=== PATIENT | male | born 1955 | race Caucasian/White ===

== ENCOUNTER → 2017-05-01 | Day surgery (SDC) | payer OTHER ==
[~2017-05-01] VITALS: Ht 188 cm; Wt 95.2 kg
[~2017-05-01] MED LIST: ASPI-973 PO; GLBR5T PO; LISI-571 PO; METF500T4 PO; NPH,100V11 SUBQ; PRAV10TA2 PO; SILD20TA14 PO; Sodium Chloride LOK Flush 10 mL Syringe IV PRN; TIZA4CAP8 PO; TRIA60LO3 TOP; fentaNYL-PF 50 mCg/mL 2 mL Inj IVPUSH PRN
[2017-05-01 15:06] VITALS: BP 119/79; PULSE 72; RESP 16; O2SAT 98
[2017-05-01] MEDS: 0.9% Sodium Chloride 1,000 ML IV PRN ×2 (15:14→16:09)
--- NOTE | 2017-05-01 16:25 | PCM.ENDCOL ---
Colonoscopy Date of Service: May 01, 2017 Physician Chaparro Chen MD Pre Procedure Diagnosis: Screening Post Procedure Dx & Findings: Polyp hemorrhoids diverticulosis Procedure Colonoscopy PROCEDURE IN DETAIL: Prep adequate Withdrawal time 17 minutes After unremarkable rectal examination the Olympus video colonoscope was inserted patient's anal canal and was advanced to cecum. Landmarks were identified including the ileocecal valve and appendiceal orifice. Scope was withdrawn systematically. Visualized colonic mucosa showed healthy shiny mucosa with normal healthy-appearing vasculature. In the ascending colon there was a 1 mm polyp which was removed completely with cold forceps. In the transverse colon there was 1 mm polyp which was removed completely using cold forceps. In the descending colon there was a 1 mm polyp which was removed completely using cold forceps. The sigmoid colon there was a 3 mm polyp which was removed completely using cold snare. In the rectosigmoid junction, there was a 1 cm polyp which was removed completely using snare. From the descending colon and to the distal sigmoid colon there are a few isolated diverticuli medium-sized. In the rectum retroflexion was done which showed hemorrhoids. Anal canal was inspected carefully on the way out and hemorrhoids noted. Impression Polyps 5 status post complete removal. Largest one centimeters. Diverticuli Hemorrhoids Recommendation Repeat colonoscopy 3 years Diverticula diet Presedation Assessment Risks and Benefits Informed consent was obtained from the patient after all risks and benefits including but not limited to drug reaction, infection, pain, bleeding, perforation, as well as alternatives were discussed. Patient monitoring Continuous pulse oximetry, cardiac monitoring, blood pressure monitoring, IV access, and oxygen at 2L per nasal cannula. Periprocedural Fentanyl: Fentanyl 75mcg Incrementally Midazolam: Midazolam 4mg Incrementally Complications There were no periprocedural complications identified. Post Procedure Plan Post Procedure Recommendations 1. Restrict activities today. 2. Resume normal activities in the morning. 3. Resume medications. 4. Patient informed of normal post procedure side effects as bloating, drowsiness, blood streaking in the stool. 5. average risk CRCS. If colon polyps come back as: -Hyperplastic- can repeat colonoscopy in 10 years -Tubular adenoma- repeat colonoscopy in 5 years -Tubulovillous/villous adenoma- repeat colonoscopy in 3 years -If any dysplasia- return to clinic as soon as possible 6. Please don't hesitate to call me with any questions. Chaparro Chen MD May 01, 2017 16:25
[2017-05-01 16:31] VITALS: BP 142/81; PULSE 74; RESP 16; O2SAT 99
[2017-05-01 16:41] VITALS: BP 136/84; PULSE 63; RESP 16; O2SAT 98
[2017-05-01 16:47] VITALS: BP 140/83; PULSE 66; RESP 16; O2SAT 98
--- NOTE | 2017-05-03 16:38 | PATH ---
SURGICAL PATHOLOGY Attending Physician:Chaparro Chen M.D. CASE STATUS: Signed Out PATIENT NAME: SKYE ROSENTHAL PID: [id number] : 1955 DATE COLLECTED:05/01/2017 00:00 SPECIMEN: 1: Colon, Polyp 2: Colon, Polyp 3: Colon, Polyp 4: Colon, Polyp 5: Rectum, Biopsy CLINICAL HISTORY: 1). ASCENDING COLON POLYP 2). TRANSVERSE COLON POLYP 3). DESCENDING COLON POLYP 4). SIGMOID COLON POLYP 5). RECTAL POLYP FINAL DIAGNOSIS: 1.ASCENDING COLON, POLYP, BIOPSY: POLYPOID PORTION OF COLORECTAL MUCOSA WITH A LYMPHOID AGGREGATE AND NO DIAGNOSTIC ABNORMALITY. 2.TRANSVERSE COLON, POLYP, BIOPSY: TUBULAR ADENOMA; NEGATIVE FOR HIGH-GRADE DYSPLASIA. 3.DESCENDING COLON, POLYP, BIOPSY: TUBULAR ADENOMA; NEGATIVE FOR HIGH-GRADE DYSPLASIA. 4.SIGMOID COLON, POLYP, BIOPSY: POLYPOID PORTION OF COLORECTAL MUCOSA WITH NO DIAGNOSTIC ABNORMALITY. 5.RECTUM, POLYP, BIOPSY: TUBULAR ADENOMA; NEGATIVE FOR HIGH-GRADE DYSPLASIA. [id number] GROSS DESCRIPTION: The specimen is received in five formalin filled containers labeled with the patient's name. 1). The specimen is labeled "ascending colon polyp" and consists of a 0.2 x 0.2 x 0.2 CM portion of tissue which is entirely submitted in cassette 1A. 2). The specimen is labeled "transverse colon polyp" and consists of a 0.2 x 0.2 x 0.2 CM portion of tissue which is entirely submitted in cassette 2A. 3). The specimen is labeled "descending colon polyp" and consists of a 0.3 x 0.3 x 0.3 CM portion of tissue which is entirely submitted in cassette 3A. 4). The specimen is labeled "sigmoid colon polyp" and consists of a 0.2 x 0.2 x 0.2 CM portion of tissue which is entirely submitted in cassette 4A. 5). The specimen is labeled "rectal polyp" and consists of a 0.6 x 0.5 x 0.4 CM portion of tissue. The specimen is bisected and entirely submitted in cassette 5A. 05/02/2017DC MICRO DESCRIPTION: See diagnosis. ICD-9 CODES: CPT CODES: 1: 31917 2: 94974 3: 03641 4: 87499 5: 57261 Electronically Signed Out Joy Adame MD [facility] [address], [place] [address] Technical component performed at [facility], [facility] [address], [place], [address]
== END | disposition home or self-care (01) ==
LOC: END 00:25
PROVIDERS: ATTEND Internal Medicine
DX: Z12.11 Encounter for screening for malignant neoplasm of colon (principal); D12.3 Benign neoplasm of transverse colon; D12.4 Benign neoplasm of descending colon; D12.8 Benign neoplasm of rectum; K63.5 Polyp of colon; K64.8 Other hemorrhoids; K57.30 Diverticulosis of large intestine without perforation or abscess without bleeding; Z83.71 Family history of colonic polyps; E11.3293 Type 2 diabetes mellitus with mild nonproliferative diabetic retinopathy without macular edema, bilateral; E11.42 Type 2 diabetes mellitus with diabetic polyneuropathy; E78.00 Pure hypercholesterolemia, unspecified; I49.3 Ventricular premature depolarization; Z79.4 Long term (current) use of insulin; Z79.84 Long term (current) use of oral hypoglycemic drugs; Z79.82 Long term (current) use of aspirin
CPT/HCPCS: 45380; 45385; 99153; G0500; J2250; J3010; J7030